=== PATIENT | male | born 1995 ===

== ENCOUNTER 2017-01-26 09:50 | Emergency (ER) | payer BC ==
[2017-01-26 10:05] VITALS: BP 121/64
--- NOTE | 2017-01-26 10:17 | UC ---
Lower Extremity/Ankle HPI - HPI Summary HPI Summary: 21 yo male with left ankle pain since yester jumped [place] [employer] can bear wt but walks with limp - History of Current Complaint Chief Complaint: UCLowerExtremity Stated Complaint: LEFT ANKLE INJURY Time Seen by Provider: 01/26/17 10:09 Hx Obtained From: Patient Onset/Duration: Sudden Onset Severity Initially: Moderate Severity Currently: Mild - 0 Pain Intensity: 0 - pain with wt bearing only Pain Scale Used: 0-10 Numeric Aggravating Factor(s): Standing, Ambulation Alleviating Factor(s): Rest, Elevation Able to Bear Weight: Yes - Allergies/Home Medications Allergies/Adverse Reactions: Allergies Allergy/AdvReac Type Severity Reaction Status Date / Time seasonal Allergy Runny Nose Uncoded 01/26/17 09:55 Home Medications: Home Medications Ibuprofen TAB* [Motrin TAB* 800 MG] 800 mg PO Q6H PRN 01/26/17 [History Confirmed 01/26/17] PMH/Surg Hx/FS Hx/Imm Hx Previously Healthy: Yes - Surgical History Surgical History: None - Family History Known Family History: Positive: Cardiac Disease, Hypertension, Diabetes, Other - MS, Ca - Social History Alcohol Use: Occasionally Substance Use Type: None Smoking Status (MU): Never Smoked Tobacco - Immunization History Vaccination Up to Date: Yes Review of Systems Constitutional: Negative Skin: Bruising Eyes: Negative ENT: Negative Respiratory: Negative Cardiovascular: Negative Gastrointestinal: Negative Genitourinary: Negative Motor: Negative Neurovascular: Negative Musculoskeletal: Arthralgia Neurological: Negative Psychological: Negative All Other Systems Reviewed And Are Negative: Yes Physical Exam Triage Information Reviewed: Yes Appearance: Well-Appearing, No Pain Distress, Well-Nourished Vital Signs: Initial Vital Signs Temp 97.8 F 01/26/17 09:56 Pulse 72 01/26/17 09:56 Resp 16 01/26/17 09:56 BP 121/64 01/26/17 09:56 Pulse Ox 99 01/26/17 09:56 Vital Signs Reviewed: Yes Eyes: Positive: Conjunctiva Clear ENT: Positive: Hearing grossly normal. Negative: Nasal congestion, Nasal drainage, Trismus, Muffled/hoarse voice Dental: Negative: Abscess @ Neck: Positive: Supple, Nontender, No Lymphadenopathy Respiratory: Positive: Lungs clear, Normal breath sounds, No respiratory distress, No accessory muscle use Cardiovascular: Positive: RRR, No Murmur Musculoskeletal: Positive: Edema @ - LM left Neurological: Positive: Alert Psychological Exam: Normal Skin Exam: Normal Lower Extremity Course/Dx - Differential Dx/Diagnosis Provider Diagnoses: non-displaced, closed fracture of left distal fibula Discharge - Discharge Plan Condition: Stable Disposition: HOME Patient Education Materials: Ankle Fracture (ED) Forms: *Work Release Referrals: Vikas Mcgovern MD [Medical Doctor] - 2 Days Additional Instructions: you have a spiral fracture of your distal fibula rest elevate ice CAM boot crutches with non wt bearing tylenol or advil for pain Images Feet (Multiple View): 1 - tender/swollen/ecchymosis starting. antalgic gait
--- NOTE | 2017-01-26 10:55 | RAD ---
Indication: Left ankle injury. 3 views of left ankle demonstrates spiral fracture of the distal fibula. Soft tissue swelling is noted. Ankle mortise is intact. IMPRESSION: Spiral fracture distal fibula.
== END 2017-01-26 10:55 | disposition home or self-care (01) ==
LOC: UCCORT 09:50
DX: S82.832A Other fracture of upper and lower end of left fibula, initial encounter for closed fracture (principal); Y93.39 Activity, other involving climbing, rappelling and jumping off; X58.XXXA Exposure to other specified factors, initial encounter
CPT/HCPCS: 99203; G0463